=== PATIENT | male | born 1995 | race Two or more races ===

== ENCOUNTER 2024-07-20 23:07 | Emergency (ER) | payer MEDICAID, OTHER ==
[~2024-07-20] VITALS: Ht 170.2 cm; Wt 79.4 kg
[2024-07-21] VITALS: BP 118/67; TEMP 98.4; O2SAT 98
[2024-07-21] MEDS ORDERED: CHLO118L3 TP (00:16)
[2024-07-21] MEDS ORDERED: KETO10TA2 PO (00:16)
[2024-07-21] MEDS ORDERED: HYDR-4209 PO (00:16)
== END 2024-07-21 00:33 | disposition home or self-care (01) ==
LOC: ER 23:14
DX: S01.512A Laceration without foreign body of oral cavity, initial encounter (principal); Z60.2 Problems related to living alone; W22.09XA Striking against other stationary object, initial encounter; Y93.89 Activity, other specified; Y92.89 Other specified places as the place of occurrence of the external cause; Y99.8 Other external cause status

== ENCOUNTER 2024-10-16 00:20 | Emergency (ER) | payer MEDICAID ==
[~2024-10-16] VITALS: Ht 165.1 cm; Wt 66.7 kg
[~2024-10-16 00:20] MED LIST: CHLO118L3 TP; HYDR-4209 PO; KETO10TA2 PO
[2024-10-16] MEDS ORDERED: IBUPROFEN 400 MG TABLET ONE (01:41)
[2024-10-16] MEDS: IBUPROFEN 400 MG TABLET PO ONE (01:56)
[2024-10-16 02:04] VITALS: BP 109/68; TEMP 208.2; O2SAT 97
== END 2024-10-16 02:05 | disposition left against medical advice (07) ==
LOC: ER 00:24
DX: S09.90XA Unspecified injury of head, initial encounter (principal); M54.2 Cervicalgia; M54.50 Low back pain, unspecified; V43.52XA Car driver injured in collision with other type car in traffic accident, initial encounter; Y93.89 Activity, other specified; Y92.410 Unspecified street and highway as the place of occurrence of the external cause; Y99.8 Other external cause status

== ENCOUNTER 2025-03-13 20:06 | Emergency (ER) | payer MEDICAID ==
[~2025-03-13] VITALS: Ht 167.6 cm; Wt 68.0 kg
[2025-03-13 20:58] LABS: BASOPHILS # (AUTO) 0.1 K/uL (0.0-0.2); BASOPHILS % (AUTO) 0.6 % (0.0-2.0); EOSINOPHILS # (AUTO) 0.2 K/uL (0.0-0.7); HEMATOCRIT 42 % (39-51); HEMOGLOBIN 14.6 g/dL (13.5-17.5); LYMPHOCYTES # (AUTO) 3.3 K/uL (0.8-4.8); LYMPHOCYTES % (AUTO) 39.3 % (20.0-44.0); MEAN CORPUSCULAR HEMOGLOBIN 31 PG (26.0-33.0); MEAN CORPUSCULAR HGB CONC 34 g/dl (31.0-36.0); MEAN CORPUSCULAR VOLUME 89 fL (80-96); MONOCYTES # (AUTO) 0.4 K/uL (0.1-1.30); MONOCYTES % (AUTO) 5.2 % (2.0-12.0); NEUTROPHILS # (AUTO) 4.4 K/uL (1.8-8.9); NEUTROPHILS % (AUTO) 52.9 % (43.0-81.0); PLATELET COUNT (AUTO) 161 K/uL (150-450); RED BLOOD CELL COUNT(AUTO) 4.78 MIL/uL (4.5-6.0); RED CELL DISTRIBUTION WIDTH 13.3 % (11.5-15.0); WHITE BLOOD COUNT (AUTO) 8.3 K/uL (4.3-11.0)
[2025-03-13 21:05] LABS: CALCIUM, SERUM 8.8 mg/dL (8.5-10.1); CARBON DIOXIDE 25 mmol/L (21-32); CHLORIDE 106 mmol/L (98-107); GLUCOSE 123 mg/dL (74-106); POTASSIUM 3.5 mmol/L (3.5-5.1); SODIUM SERUM 138 mmol/L (136-145); UREA NITROGEN, BLOOD 11 mg/dL (7-18)
[2025-03-13 21:10] LABS: INR 1.02 (0.91-1.10); PARTIAL THROMBOPLASTIN TIME 24.5 SEC (24.3-34.3); PROTHROMBIN TIME 10.5 SECS (9.2-11.1)
[2025-03-13 21:55] VITALS: BP 107/80; TEMP 98.3; O2SAT 97
== END 2025-03-13 21:56 | disposition home or self-care (01) ==
LOC: ER 20:16
DX: R07.89 Other chest pain (principal); F17.200 Nicotine dependence, unspecified, uncomplicated; Z60.2 Problems related to living alone
CPT/HCPCS: 36415; 71045-TC; 80048-TC; 84484-TC; 85025-TC; 85730-TC